=== PATIENT | male | born 1960 | race Two or more races ===

== ENCOUNTER 2016-07-25 23:57 | Emergency (ER) | payer SELFPAY ==
[~2016-07-25] VITALS: Ht 165.1 cm; Wt 52.2 kg
[2016-07-26] MEDS ORDERED: IBUPROFEN600 MG ORAL (00:29)
--- NOTE | 2016-07-26 00:29 | Emergency Room Report ---
History of Present Illness General Chief Complaint: Pain Source: Patient Present Illness HPI Is a 55-year-old male presents with left-sided chest pain/rib pain. He tripped and fell against a metal bar at home over 2 weeks ago. Was diagnosed with a rib fracture. He was off work for a while. He came back to work and was having pain so they sent him here for medical clearance. Patient denies any other symptom. Worse with coughing. Worse with movement. Otherwise no shortness of breath, fever, new trauma or other complaint. Pain is 5/10. Allergies: Coded Allergies: No Known Allergies (Unverified , 07/26/16) Patient History Past Medical History: see triage record, old chart reviewed Past Surgical History: none Pertinent Family History: none Social History: Denies: smoking Immunizations: other Reviewed Nursing Documentation: PMH: Agreed, PSxH: Agreed Nursing Documentation-PMH Past Medical History: No Stated History Review of Systems Eye: Denies: blurred vision, eye pain ENT: Denies: ear pain, nose congestion, throat swelling Respiratory: Denies: cough, shortness of breath Cardiovascular: Denies: chest pain, palpitations Gastrointestinal: Denies: abdominal pain, diarrhea, nausea, vomiting Musculoskeletal: Denies: back pain, joint pain Skin: Denies: rash Neurological: Denies: headache, numbness Endocrine: Denies: increased thirst, increased urine Hematologic/Lymphatic: Denies: easy bruising All Other Systems: negative except mentioned in HPI Physical Exam Vital Signs Date Time Temp Pulse Resp B/P Pulse Ox O2 Delivery O2 Flow Rate FiO2 07/26/16 00:02 97.5 67 18 125/72 98 Room Air vitals normal Sp02 EP Interpretation: reviewed, normal General Appearance: well appearing, no apparent distress, alert Head: normocephalic, atraumatic Eyes: bilateral eye EOMI, bilateral eye PERRL ENT: hearing grossly normal, normal pharynx Neck: full range of motion, supple, no meningismus Respiratory: chest non-tender, lungs clear, normal breath sounds, other - Mild tenderness over the right lateral ribs. No crepitance. Cardiovascular #1: regular rate, rhythm, no murmur Gastrointestinal: normal bowel sounds, non tender, no mass, no organomegaly, no bruit, non-distended Musculoskeletal: back normal, gait/station normal, normal range of motion Psychiatric: mood/affect normal Skin: warm/dry Medical Decision Making Diagnostic Impression: Primary Impression: Closed rib fracture Qualified Codes: S22.31XA - Fracture of one rib, right side, initial encounter for closed fracture ER Course Patient presents with pain from rib fracture. No evidence of pneumothorax, pneumonia, ACS, PE. We'll clear him for work. Last Vital Signs Date Time Temp Pulse Resp B/P Pulse Ox O2 Delivery O2 Flow Rate FiO2 07/26/16 00:02 97.5 67 18 125/72 98 Room Air Status: unchanged Disposition: HOME, SELF-CARE Condition: Stable Scripts Ibuprofen* (MOTRIN*) 600 Mg Tablet 600 MG ORAL THREE TIMES A DAY, #30 TAB 0 Refills Prov: INGRIS REYES M.D. 07/26/16 Additional Instructions: Followup with your DrArie in 7 days. Return if worse the INGRIS REYES M.D. Jul 26, 2016 00:29
[2016-07-26 00:32] VITALS: BP 125/72
== END 2016-07-26 00:34 | disposition home or self-care (01) ==
LOC: EMR 07-26 00:23
DX: S22.31XA Fracture of one rib, right side, initial encounter for closed fracture (principal); W01.198A Fall on same level from slipping, tripping and stumbling with subsequent striking against other object, initial encounter; Y92.019 Unspecified place in single-family (private) house as the place of occurrence of the external cause
CPT/HCPCS: 99283